=== PATIENT | male | born 1990 | race Caucasian/White ===

== ENCOUNTER 2021-08-12 20:01 | Emergency (ER) | payer OTHER ==
[~2021-08-12] VITALS: Ht 180.3 cm; Wt 81.6 kg
[2021-08-12 20:24] VITALS: BP_SYST 138
--- NOTE | 2021-08-12 20:28 | NUR ---
SENT TO [facility]
--- NOTE | 2021-08-12 20:41 | NUR ---
Patient ambulatory to bed 8 for evaluation
--- NOTE | 2021-08-12 20:52 | NUR ---
ER at bedside examining patient.
[2021-08-12] MEDS ORDERED: LIDOCAINE 1% 10 MG/ML, 20 ML MDV INJ ONE (21:00)
--- NOTE | 2021-08-12 21:10 | NUR ---
SUTURING DONE BY DR MONTELONGO, PT TOLERATED IT WELL.
--- NOTE | 2021-08-12 21:27 | NUR ---
DRESSING PLACED TO RIGHT INDEX FINGER, PT INFORMED ON DRESSING CARE. EXPLAINED TO PT TO RETURN IN 2 DAYS FOR RE-CHECK
--- NOTE | 2021-08-12 21:37 | NUR ---
Patient given written and verbal discharge instructions and verbalizes understanding. ER MD discussed with patient the results and treatment provided. Patient in stable condition. ID arm band removed. Rx of NONE given. Patient educated on pain management and to follow up with PMD. Pain Scale 0/10. Opportunity for questions provided and answered. Medication side effect fact sheet provided.
== END 2021-08-12 21:36 | disposition home or self-care (01) ==
LOC: SED 20:01
DX: S61.210A Laceration without foreign body of right index finger without damage to nail, initial encounter (principal); W26.0XXA Contact with knife, initial encounter; Y93.89 Activity, other specified; Y92.89 Other specified places as the place of occurrence of the external cause; Y99.8 Other external cause status
CPT/HCPCS: 12001; 99282; J2001